=== PATIENT | male | born 1960 | race Caucasian/White ===

== ENCOUNTER 2018-06-02 16:02 | Emergency (ER) | payer BC ==
[2018-06-02 18:24] VITALS: BP 133/79; PULSE 71; RESP 16; TEMP 98.7
[2018-06-02] MEDS ORDERED: IBUPROFEN 600 MG TAB PO STA (18:59)
[2018-06-02] MEDS ORDERED: HYDROcodone/APAP 5-325MG 1 EACH TAB PO STA (19:00)
--- NOTE | 2018-06-02 19:00 | XR ---
EXAMINATION TYPE: XR shoulder complete RT DATE OF EXAM: 06/02/2018 COMPARISON: NONE HISTORY: Pain TECHNIQUE: 3 views FINDINGS: There is narrowing of the subacromial joint space. There is mild narrowing and spurring at the glenohumeral joint. I see no fracture. IMPRESSION: Degenerative changes. No fracture.
--- NOTE | 2018-06-02 19:46 | ED ---
General Adult HPI - General Chief complaint: Extremity Injury, Upper Stated complaint: Shoulder injury Time Seen by Provider: 06/02/18 18:38 Source: EMS Mode of arrival: EMS Limitations: no limitations - History of Present Illness Initial comments: 57-year-old male presents to the emergency department for a chief complaint of right shoulder pain 3 hours. Patient was walking when he slipped and fell backwards onto his right hand. Patient states that since that time he has had shoulder pain. Patient states it is worsened when he moves the right arm. Patient denies any other injuries. Patient denies pain in the elbow wrist or hand. Patient denies hitting his head or loss of consciousness. Patient has no other complaints at this time including shortness of breath, chest pain, abdominal pain, nausea or vomiting, headache, or visual changes. - Related Data Home Medications Medication Instructions Recorded Confirmed Atorvastatin Calcium [Lipitor] 20 mg PO HS 06/02/18 06/02/18 Mesalamine [Asacol Hd] 800 mg PO BID 06/02/18 06/02/18 Allergies Allergy/AdvReac Type Severity Reaction Status Date / Time No Known Allergies Allergy Verified 06/02/18 18:59 Review of Systems ROS Statement: Those systems with pertinent positive or pertinent negative responses have been documented in the HPI. ROS Other: All systems not noted in ROS Statement are negative. Past Medical History Past Medical History: Hyperlipidemia, Hypertension History of Any Multi-Drug Resistant Organisms: None Reported Past Surgical History: No Surgical Hx Reported Past Psychological History: No Psychological Hx Reported Smoking Status: Never smoker Past Alcohol Use History: None Reported Past Drug Use History: None Reported General Exam Limitations: no limitations General appearance: alert, in no apparent distress Head exam: Present: atraumatic, normocephalic, normal inspection Eye exam: Present: normal appearance ENT exam: Present: normal exam, mucous membranes moist Neck exam: Present: normal inspection, full ROM. Absent: tenderness, meningismus, lymphadenopathy Respiratory exam: Present: normal lung sounds bilaterally. Absent: respiratory distress, wheezes, rales, rhonchi, stridor Cardiovascular Exam: Present: regular rate, normal rhythm, normal heart sounds. Absent: systolic murmur, diastolic murmur, rubs, gallop, clicks Extremities exam: Present: normal capillary refill (cap refill < 2 seconds, Radial pulse 2+ in the RUE. ), other (sensation intact in the right upper extremity including all digits. ). Absent: full ROM (Patient has limited rotation of the shoulder as well as flexion and abduction due to pain. 5 out of 5 movement in the right hand. 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 Patient was walking when he slipped and fell on his right hand. Patient has had shoulder pain since. On exam neurovascular intact in the right upper extremity. No tenderness, ecchymosis, swelling noted in the right upper extremity. Patient has limited range of motion due to pain in the right shoulder. Patient was given Motrin and [place] which helped with his pain.X-ray of the right shoulder shows narrowing of the subacromial joint space. There is mild narrowing and spurring at the glenohumeral joint. Degenerative changes. No fracture. Patient's will follow up outpatient with orthopedics. He will rest and ice the shoulder and take Motrin and Tylenol for pain. He will return to the emergency department if he has any worsening symptoms which was discussed with him. Disposition Clinical Impression: Shoulder pain, right Disposition: HOME SELF-CARE Condition: Good Instructions: Shoulder Pain (ED) Additional Instructions: Please take Motrin and Tylenol for pain relief. Please rest and ice the shoulder. Follow-up with orthopedics in one to 2 days. Return to the emergency department if you have any worsening symptoms or numbness in the hand. Is patient prescribed a controlled substance at d/c from ED?: No Referrals: Mo Zhao DO [Primary Care Provider] - 1-2 days Daniel Chandler DO [Doctor of Osteopathic Medicine] - 1-2 days Time of Disposition: 19:45
== END 2018-06-02 19:53 | disposition home or self-care (01) ==
LOC: EC 16:02
DX: M25.511 Pain in right shoulder (principal); M25.811 Other specified joint disorders, right shoulder; M75.81 Other shoulder lesions, right shoulder; E78.5 Hyperlipidemia, unspecified; I10 Essential (primary) hypertension; Z79.899 Other long term (current) drug therapy; W01.0XXA Fall on same level from slipping, tripping and stumbling without subsequent striking against object, initial encounter; Y93.01 Activity, walking, marching and hiking; Y92.009 Unspecified place in unspecified non-institutional (private) residence as the place of occurrence of the external cause
CPT/HCPCS: 99283